=== PATIENT | male | born 1965 | race Caucasian/White ===

== ENCOUNTER → 2016-07-04 | Day surgery (SDC) | payer OTHER ==
[~2016-07-04] MED LIST: CATAPRES0.1 M1; CLONIDINE PO; GLUCOPHAGE500 M1 PO; HCTZ PO; METFORMIN PO; METOPROLOL SUC100 MG PO; NORVASC PO; PRINIVIL20 M1 PO; TOPROL XL PO; VIT E PO
--- NOTE | ~2016-07-04 | OR ---
Unit #: [id number] #: [id number] Patient: MARK DIAZ [id number] [address] [address] [id number] O MR#: [id number] NAME: MARK DIAZ ROOM: Date of Procedure: 07/04/2016 Admission Date: 07/04/2016 Surgeon: Sp Grant M.D. : 1965 Attending Physician: Sp Grant M.D. Referring Physician: Sp Grant M.D. Primary Care Physician: Juany Tracy M.D. OPERATIVE REPORT PREOPERATIVE DIAGNOSIS Screening colonoscopy. POSTOPERATIVE DIAGNOSIS Screening colonoscopy. PROCEDURE PERFORMED Colonoscopy to terminal ileum. ANESTHESIA Monitored anesthesia care. FINDINGS The patient had normal colonoscopy to terminal ileum, other than mild internal hemorrhoids. SPECIMENS None. COMPLICATIONS None apparent. CONDITION The patient tolerated the procedure well. INDICATIONS FOR PROCEDURE The patient is a 48-year-old white male who has never had a screening colonoscopy performed. He presents at this time for screening colonoscopy. DESCRIPTION OF PROCEDURE After obtaining informed consent, the patient was brought to the endoscopy suite and after adequate monitored anesthesia care, had the colonoscope placed through the anus and slowly advanced to the level of cecum without difficulty with the lumen always in view. The cecum was normal as was the ileocecal valve. We were able to pass through the ileocecal valve into the terminal ileum. The terminal ileum was normal as was the valve in the cecum. The ascending colon was normal as was the hepatic flexure, transverse colon, splenic flexure, descending colon, sigmoid colon, and rectum. No diverticula were seen. On retroflexing in the rectum to the anal rectal junction, the patient was found to have some mild internal hemorrhoids. The scope was removed without difficulty. The patient tolerated the procedure well and went from the endoscopy suite to recovery Unit #: [id number] #: [id number] Patient: MARK DIAZ area in stable condition. RECOMMENDATIONS High-fiber diet, lots of liquids, tucks or wipes p.r.n. Follow up in our office as needed. Dictated by... Fannie Yanez/eneida TD: 07/04/2016 14:52 JOB #: [id number] [facility] OPERATIVE REPORT Page 1 of 1 X Sp Grant MD PROCEDURE OPERATIVE NOTE
== END | disposition home or self-care (01) ==
LOC: COPS 10:13
DX: Z12.11 Encounter for screening for malignant neoplasm of colon (principal); K64.8 Other hemorrhoids; I10 Essential (primary) hypertension; E11.9 Type 2 diabetes mellitus without complications; J45.909 Unspecified asthma, uncomplicated; Z79.899 Other long term (current) drug therapy; Z98.890 Other specified postprocedural states
CPT/HCPCS: 82947; J2250